=== PATIENT | male | born 1950 | race Caucasian/White ===

== ENCOUNTER 2016-07-16 06:37 | Day surgery (SDC) | payer MEDICARE, OTHER ==
--- NOTE | ~2016-07-16 | EGD ---
EGD REPORT [facility] [address] [place] [address] NAME: LAMBERT MO : [birth year] STATUS : REG [facility]#: [id number] AGE: 65 ADM/REG DATE : 07/16/16 MR#: [id number] REPORT SERV DATE: 07/16/16 DICTATED BY: ESTUARDO HEMPHILL DATE: 07/16/16 REPORT STATUS : Draft TRANSCRIBED BY: [facility] DATE: 07/16/16 Endoscopy Center Patient Name: Lambert Mo Date of : 1950 Attending MD: ESTUARDO HEMPHILL MD Procedure Date No Time: 07/16/2016 Procedure: Colonoscopy Indications: Personal history of colonic polyps Referring MD: JAVAN LEWIS Medicines: Propofol per Anesthesia Complications: No immediate complications. Procedure: Pre-Anesthesia Assessment: - ASA Grade Assessment: II - A patient with mild systemic disease. After I obtained informed consent, the scope was passed under direct vision. Throughout the procedure, the patient's blood pressure, pulse, and oxygen saturations were monitored continuously. The CF [id number] was introduced through the anus and advanced to the cecum, identified by appendiceal orifice and ileocecal valve. The colonoscopy was performed without difficulty. Findings: The perianal and digital rectal examinations were normal. Hemorrhoids were found during retroflexion and were Grade I (internal hemorrhoids that do not prolapse). The colon (entire examined portion) appeared normal. Impression: - Hemorrhoids. - The entire examined colon is normal. Recommendation: - Discharge patient to home (ambulatory). - Repeat colonoscopy in 5 years for surveillance. Procedure Code(s): --- Professional --- 37417, Colonoscopy, flexible, proximal to splenic flexure; diagnostic, with or without collection of specimen(s) by brushing or washing, with or without colon decompression (separate procedure) Diagnosis Code(s): --- Professional --- K64.0, First degree hemorrhoids Z86.010, Personal history of colonic polyps EGD REPORT [facility] [address] [facility] [place]. [address] NAME: LAMBERT MO : [birth year] STATUS : REG [facility]#: [id number] AGE: 65 ADM/REG DATE : 07/16/16 MR#: [id number] REPORT SERV DATE: 07/16/16 DICTATED BY: ESTUARDO HEMPHILL. DATE: 07/16/16 REPORT STATUS : Draft TRANSCRIBED BY: [employer] DATE: 07/16/16 CPT copyright 2013 [employer]. All rights reserved. The codes documented in this report are preliminary and upon certified procedural coder review may be revised to meet current compliance requirements. Estuardo Hemphill MD ESTUARDO HEMPHILL MD 07/16/2016 8:44 AM This report has been signed electronically. Number of Addenda: 0 Note Initiated On: 07/16/2016 8:21 AM Scope Withdrawal Time 0 hours 6 minutes [address] [facility] [place] [address]
[~2016-07-16 06:37] MED LIST: ASAB PO; COREG25 PO
== END 2016-07-16 23:59 | disposition home or self-care (01) ==
LOC: DMU 06:37
PROVIDERS: Internal Medicine Gastroenterology
PROC: 0DJD8ZZ Inspection of Lower Intestinal Tract, Via Natural or Artificial Opening Endoscopic (ICD-10-PCS; principal; 2016-07-16 08:00)
DX: K64.9 Unspecified hemorrhoids (principal); I10 Essential (primary) hypertension; Z86.010 Personal history of colon polyps